=== PATIENT | male | born 1940 | race Caucasian/White ===

== ENCOUNTER 2017-12-08 08:56 | Outpatient (CLI) | payer MEDICARE, BC ==
[~2017-12-08 08:56] MED LIST: AMIO200T54 PO; ASPI-1265 PO; ATOR80TA PO; B12; COU2.5T PO; COU5T PO; GLIM1TAB46 PO; METO25TA6 PO; METO50TA17 PO; MULT-1085 PO; OMEG1CAP13 PO; VITA-268 PO
[2017-12-08 09:26] LABS: TOTAL HEMOGLOBIN 15.2 G/dl (14.0-18.0)
[2017-12-08] MEDS ORDERED: albuterol 2.5 MG/3 ML nebule NEB PRN (10:00)
== END 2017-12-08 23:59 | disposition home or self-care (01) ==
LOC: RT 08:56
PROVIDERS: ATTEND Internal Medicine Cardiovascular Disease
DX: Z51.81 Encounter for therapeutic drug level monitoring (principal); I11.9 Hypertensive heart disease without heart failure; R94.2 Abnormal results of pulmonary function studies; J44.9 Chronic obstructive pulmonary disease, unspecified; Z79.899 Other long term (current) drug therapy; Z87.891 Personal history of nicotine dependence; Z79.82 Long term (current) use of aspirin
CPT/HCPCS: 71046; 85018; 94010; 94727; 94729